=== PATIENT | female | born 1980 | race Caucasian/White ===

== ENCOUNTER 2016-07-20 22:37 | Emergency (ER) | payer OTHER ==
--- NOTE | ~2016-07-20 | CT2 ---
[facility] A Service of [facility] RADIOLOGY TEXT RESULTS PATIENT: GORDON ROSARIO LOCATION: SED : 82 UNIT #: [id number] AGE: [address]: Andrews Douglass MD SEX: F ORDER DR: [id number] [address] [id number] [id number] MR#: [id number] Acc #: [id number] NAME: GORDON ROSARIO : 1980 SEX: F STUDY DATE/TIME: 07/21/2016 0:43 UNIT: SED ROOM: STUDY DESCRIPTION: CT Abd and Pelv W Cont Attending Physician: Andrews Douglass M.D. Ordering Physician: Andrews Douglass M.D. Primary Care Physician: Primary Care Physician No MEDICAL IMAGING REPORT This report is preliminary unless electronic signature is present. EXAM CT abdomen and pelvis with contrast HISTORY 35-year-old female lower abdominal pain since 10:30 on 07/20/[address] exam was performed with one or more of the following radiation dose reduction techniques: automatic exposure control, adjustment of mA and/or kV according to patient size, and iterative reconstruction. FINDINGS Axial images performed through the abdomen and pelvis following IV and oral contrast. Multiplanar reconstructed images reviewed at a workstation. ABDOMEN: Lung bases unremarkable. The liver and spleen unremarkable. The gallbladder is absent. Minimal intrahepatic ductal dilatation not unexpected in this patient post cholecystectomy. Pancreas, kidneys and adrenal glands unremarkable. No free air or free fluid. Visualized GI tract to include the appendix is normal. Retroperitoneum unremarkable. PELVIS: Bladder, uterus and adnexa appear normal. Osseous structures and soft tissues appear normal. IMPRESSION Normal CT abdomen and pelvis. Dictated by... Raheem Holloway M.D. [facility] A Service of [facility] RADIOLOGY TEXT RESULTS PATIENT: GORDON ROSARIO LOCATION: SED : 82 UNIT #: [id number] AGE: [address]: Andrews Douglass MD SEX: F ORDER DR: THIS IS AN ELECTRONICALLY VERIFIED REPORT Raheem Holloway M.D. at 07/21/2016 5:18 AM POP/shayna TD: 07/21/2016 03:50 JOB #: [id number] MEDICAL IMAGING REPORT Page 1 of 1
[2016-07-20] MEDS ORDERED: GABAPENTIN300 MG PO (22:55)
[2016-07-20 23:13] LABS: URINE SOURCE CLEAN CATCH
[2016-07-20 23:15] LABS: URINE APPEARANCE CLEAR; URINE BILIRUBIN NEG (NEG); URINE BLOOD NEG (NEG); URINE COLOR YELLOW; URINE GLUCOSE NEG (NORM); URINE KETONE NEG (NEG); URINE LEUKOCYTE ESTERASE NEG (NEG); URINE NITRATE NEG (NEG); URINE PH 6.5 (5-8); URINE PROTEIN NEG (NEG); URINE UROBILINOGEN 0.2 MG/DL (NORM)
[2016-07-20 23:17] LABS: MICRO INDICATED? NO
[2016-07-20 23:32] LABS: BASOPHIL# 0.1 X10e3 (0-0.3); EOSINOPHIL# 0.1 X10e3 (0-0.7); EOSINOPHIL% 1.5 % (0.0-7.0); HEMATOCRIT 38.5 % (35.0-45.0); HEMOGLOBIN 12.6 gm/dL (12.0-16.0); LYMPHOCYTE# 2.9 X10e3 (1.0-3.5); LYMPHOCYTE% 32.7 % (17.0-45.0); MEAN CELL VOLUME 90.1 FL (83-96); MEAN CORPUSCULAR HEMOGLOBIN 29.4 PG (28-34); MEAN CORPUSCULAR HGB CONC 32.6 g/dL (30-36); MEAN PLATELET VOLUME 7.9 FL (6.5-11.5); MONOCYTE# 0.4 X10e3 (0-1.0); MONOCYTE% 4.5 % (3.0-12.0); NEUTROPHIL# 5.3 X10e3 (1.5-7.1); NEUTROPHIL% 60.3 % (40-75); PLATELET COUNT 409 X10e3 (140-420); RED BLOOD COUNT 4.27 X10e (3.90-5.30); WHITE BLOOD COUNT 8.8 X10e3 (4.0-10.5)
[2016-07-20 23:33] LABS: DIFF IND NO
[2016-07-20 23:49] LABS: ALBUMIN SERUM 3.8 g/dL (3.5-5.0); BILIRUBIN,TOTAL 0.3 mg/dL (0.2-2.0); CREATININE SERUM 0.5 mg/dL (0.6-1.4); GLOM FILT RATE Estimated 126.3 mL/min (>60); POTASSIUM 3.2 mmol/L (3.5-5.1); PROTEIN TOTAL SERUM 7.1 g/dL (6.0-8.3)
== END 2016-07-21 01:40 | disposition home or self-care (01) ==
LOC: SED 22:37
DX: R10.30 Lower abdominal pain, unspecified (principal); Z90.49 Acquired absence of other specified parts of digestive tract; F17.200 Nicotine dependence, unspecified, uncomplicated
CPT/HCPCS: 36415; 74177; 80053; 81003; 84703; 85025; 96361; 96374; 96375; 99284; J2270; J2405; Q9967